=== PATIENT | female | born 1940 | race Caucasian/White ===

== ENCOUNTER → 2019-08-24 | Outpatient (CLI) | payer MEDICARE ==
[~2019-08-24] MED LIST: REGADENOSON 0.4 MG/5 ML DISP.SYRIN. IV ONE
--- NOTE | 2019-08-24 14:05 | RAD ---
MR#: [id number] Date of Study: 08/24/2019 Ordering Physician: KRIS WAY, Referring Physician: ALINE BRADSHAW Tech: NURIS Morocho APPROVED REPORT Test Type: Pharmacological Stress Nurse/Tech: ALISSA Galindo Test Indications: chest pain, family history Cardiac History: See Electronic Medical Record Medications: See Electronic Medical Record Medical History: See Electronic Medical Record Resting ECG: SR Resting Heart Rate: 63 bpm Resting Blood Pressure: 132/55mmHg Nurse/Tech Notes S1S2, lungs CTA, c/o slight chest pain Consent: The procedure was explained to the patient in lay terms. Informed consent was witnessed. Iban eout was entered into [employer]. History and Stress Test performed by RT Gabriela (R) (N) Pharm. Details Pharmacologic stress testing was performed using 0.4mg per 5ml of regadenoson given intravenously ove r 7-10 seconds. Stress Symptoms Pt c/o feeling light-headed and still having slight chest pain, intensity did not increase. POST EXERCISE Reason for Termination: Infusion complete Target HR: No Max HR: 93 bpm Max Blood Pressure: 150/61mmHg Blood Pressure response to exercise: Normal blood pressure response during stress. Heart Rate response to exercise: Normal response to stress Chest Pain: Yes. slight Arrhythmia: No. ST Change: No. INTERPRETATION Stress EKG Conclusion: Baseline EKG showed sinus rhythm. No ischemic changes at peak stress. No arr hythmias. Imaging Protocol IMAGE PROTOCOL: Rest Tc-99m/stress Tc-99m 1 day Rest: Stress: Viability: Radiopharm.Tc99m CyraozdfrTt53m Sestamibi Jhcf54oUp 31mCi Duration 15min. 10min. Img Date 08/24/2019 08/24/2019 Inj-Img Fapd65tzc. 60min. Rest Admin Site:IV - Right AntecubitalAdministrator:ROHIT Dove, ARRT (R)(N) Stress Admin Site: IV - Right AntecubitalAdministrator: RT Gabriela (R)(N) STRESS DATA End Diast. Vol.64.0mlAv. Heart Rate72.0bpm End Syst. Vol.9.0mlCO Index BSA0.0L/min Myocardial Qnpi420.0gEject. Retcukvm43.0% Stress Rates Pk. Fill Rate3.03EDV/secLVtime Pk. Fill 131.97msec Pk. Empty Rate4.02ESV/secLVtime Pk. Yhyvs408.42msec 1/3 Pk. Fill1.93EDV/sec Stress Scores Regional WT0.00Summed WT0.00 Regional WM0.00Summed WM0.00 Study quality was . Left Ventricular size was Normal at Rest and Stress. Lung uptake was . Left Ventricular ejection fraction is 86%. The rest and stress images show normal perfusion, normal contraction and thickening. LV Perf. Quant 17 Seg. SSS1.00 17 Seg. SRS1.00 17 Seg. SDS0.00 Stress Defect Extent (% LAD)0.00Rest Defect Extent (% LAD)0.00Rev. Defect Extent (% LAD)0.00 Stress Defect Extent (% LCX) 5.00Rest Defect Extent (% LCX)2.50Rev. Defect Extent (% LCX)3.80 Stress Defect Extent (% RCA)0.00Rest Defect Extent (% RCA)0.00Rev. Defect Extent (% RCA)0.00 Stress Defect Extent (% JAYLEEN)1.30Rest Defect Extent (% JAYLEEN)0.40Rev. Defect Extent (% JAYLEEN)1.10 Conclusion 1. Regadenoson cardioisotope stress test did not show any evidence of ischemia or infarct. 2. Normal left ventricular systolic function with ejection fraction calculated at 86%. 3. Low risk for cardiac events. Signed by : Kris Way, Electronically Approved : 08/24/2019 14:05:00
--- NOTE | 2019-08-25 09:15 | CARD ---
MR#: [id number] Date of Study: 08/24/2019 Ordering Physician: KRIS RAMIREZ, Referring Physician: Pete BRADSHAW: Ermelinda Richey DU APPROVED REPORT EXAM: Two-dimensional and M-mode echocardiogram with Doppler and color Doppler. Other Information Quality : AverageHR: 63bpm Rhythm : NSR INDICATION Dyspnea 2D DIMENSIONS RVDd3.3 (2.9-3.5cm)Left Atrium(2D)3.7 (1.6-4.0cm) IVSd0.8 (0.7-1.1cm)Aortic Root(2D)1.7 (2.0-3.7cm) LVDd4.9 (3.9-5.9cm)LVOT Diameter1.8 (1.8-2.4cm) PWd0.4 (0.7-1.1cm)LVDs3.1 (2.5-4.0cm) FS (%) 36.6 %SV73.8 ml LVEF(%)66.2 (>50%) Aortic Valve AoV Peak Wilder.151.3cm/sAoV VTI37.5cm AO Peak GR.9.2mmHgLVOT Peak Wilder.95.3cm/s AO Mean GR.5mmHgAVA (VMAX)1.58cm2 MELANIE (VTI)1.60cm2 Mitral Valve MV E Nqxxgieq77.2cm/sMV E Peak Gr.3mmHg MV DECEL LFFB373vyLF A Rotoklee69.5cm/s MV E Mean Gr.1mmHgE/A Ratio1.2 Pulmonary Valve PV Peak Bkdoxrgt40.5cm/s Pulmonary Vein S1 Vqcnojfg62.7cm/sD2 Crxixseg61.4cm/s LEFT VENTRICLE The left ventricle is normal size. There is normal left ventricular wall thickness. The left ventricu lar systolic function is normal. The Ejection Fraction is 65%. There is normal LV segmental wall patrick on. Transmitral Doppler flow pattern is Grade II-pseudonormal filling dynamics. RIGHT VENTRICLE The right ventricle is normal size. There is normal right ventricular wall thickness. The right ventr icular systolic function is normal. ATRIA The left atrium size is normal. The right atrium size is normal. The interatrial septum is intact wit h no evidence for an atrial septal defect or patent foramen ovale as noted on 2-D or Doppler imaging. AORTIC VALVE The aortic valve is normal in structure and function. The aortic valve is trileaflet. Doppler and Col or Flow revealed no significant aortic regurgitation. There is no significant aortic valvular stenosi s. There is no aortic valvular vegetation. MITRAL VALVE The mitral valve is normal in structure and function. There is no evidence of mitral valve prolapse. There is no mitral valve stenosis. Doppler and Color-flow revealed trace mitral regurgitation. TRICUSPID VALVE The tricuspid valve is normal in structure and function. Doppler and Color Flow revealed no tricuspid valve regurgitation noted. There is no tricuspid valve prolapse or vegetation. There is no tricuspid valve stenosis. PULMONIC VALVE The pulmonic valve is not well visualized. GREAT VESSELS The aortic root is normal in size. The ascending aorta is normal in size. The IVC is normal in size a nd collapses >50% with inspiration. PERICARDIAL EFFUSION There is no evidence of significant pericardial effusion. Critical Notification Critical Value: No <Conclusion> The left ventricular systolic function is normal. The Ejection Fraction is 65%. There is normal LV segmental wall motion. Doppler and Color-flow revealed trace mitral regurgitation. There is no evidence of significant pericardial effusion. Signed by : Kris Ramirez, Electronically Approved : 08/25/2019 09:14:35
== END | disposition home or self-care (01) ==
LOC: ECHO 09:19
PROVIDERS: ATTEND Internal Medicine Cardiovascular Disease
DX: R06.09 Other forms of dyspnea (principal); R07.9 Chest pain, unspecified
CPT/HCPCS: 78452; 93017; 93306; A9500; J2785

== ENCOUNTER 2019-09-21 06:57 | Outpatient (CLI) | payer MEDICARE ==
[2019-09-21] VITALS (10 sets, daily range): BP systolic 87–161; BP diastolic 54–89
[~2019-09-21] VITALS: Ht 152.4 cm; Wt 88.5 kg
[2019-09-21] MEDS ORDERED: NAPR220C4 PO (07:28)
[2019-09-21] MEDS ORDERED: ALBU2.5V8 IH (07:28)
[2019-09-21] MEDS ORDERED: ASPI-630 PO (07:28)
[2019-09-21] MEDS ORDERED: METO25TA4 PO (07:28)
[2019-09-21 07:35] LABS: HEMATOCRIT 44.6 % (36.0-47.0); HEMOGLOBIN 14.9 g/dL (12.0-15.5); RED BLOOD COUNT 4.78 x10^6/uL (3.50-5.40); RED CELL DISTRIBUTION WIDTH 13.8 % (11.5-14.5)
[2019-09-21 07:45] LABS: CALCIUM 8.8 mg/dL (8.5-10.1); CREATININE 1.3 mg/dL (0.6-1.0); GFR 39.7; POTASSIUM 4.3 mmol/L (3.5-5.1)
[2019-09-21 07:46] LABS: PROTHROMBIN TIME PATIENT 13.2 SEC (11.7-14.0)
[2019-09-21] MEDS ORDERED: IODIXANOL 320 MG/ML 100 ML VIAL. ONE (07:59)
[2019-09-21] MEDS ORDERED: LIDOCAINE 1% PF 2 ML VIAL. ONE (07:59)
[2019-09-21] MEDS ORDERED: fentaNYL PF VIAL 100 MCG/2 ML VIAL ONE (08:32)
[2019-09-21] MEDS ORDERED: NITROGLYCERIN 200 MCG/2 ML SYRINGE FOR CATH/VASC LAB. ONE (08:32)
[2019-09-21] MEDS ORDERED: MIDAZOLAM HCL/PF 2 MG/2 ML VIAL. ONE (08:32)
[2019-09-21] MEDS ORDERED: VERAPAMIL 5 MG/2 ML VIAL. ONE (08:32)
[2019-09-21] MEDS ORDERED: HEPARIN for IV BOLUS 10,000 UNIT/10 ML VIAL. ONE (08:32)
[2019-09-21] MEDS ORDERED: VERAPAMIL 5 MG/2 ML VIAL. IART ONE (09:15)
[2019-09-21] MEDS ORDERED: NITROGLYCERIN 200 MCG/2 ML SYRINGE FOR CATH/VASC LAB. IART ONE (09:15)
[2019-09-21] MEDS ORDERED: HEPARIN for IV BOLUS 10,000 UNIT/10 ML VIAL. IART ONE (09:15)
[2019-09-21] MEDS ORDERED: LIDOCAINE 1% PF 2 ML VIAL. INJ ONE (09:15)
[2019-09-21] MEDS ORDERED: HEPARIN for IV BOLUS 10,000 UNIT/10 ML VIAL. IV ONE (09:15)
[2019-09-21] MEDS ORDERED: MIDAZOLAM HCL/PF 2 MG/2 ML VIAL. IV ONE (09:15)
[2019-09-21] MEDS ORDERED: IODIXANOL 320 MG/ML 100 ML VIAL. IART ONE (09:15)
[2019-09-21] MEDS ORDERED: fentaNYL PF VIAL 100 MCG/2 ML VIAL IV ONE (09:15)
[2019-09-21] MEDS ORDERED: NITROGLYCERIN SUBLINGUAL 0.4 MG BOTTLE OF 25. SL ONE (09:16)
[2019-09-21] MEDS ORDERED: NITROGLYCERIN SUBLINGUAL 0.4 MG BOTTLE OF 25. SL PRN ×2 (09:30→10:15)
[2019-09-21] MEDS ORDERED: IV 1/2 NORMAL SALINE 1,000 ML IV SCH (10:03)
--- NOTE | 2019-09-21 10:03 | PDOC ---
MODERATE SEDATION ASSESSMENT RISKS/ALTERNATIVES Risks/Alternatives Risks and alternatives of this type of sedation and procedure discussed with: RISK/ALTERNATIVES: Patient H & P ON CHART H & P H & P on chart and reviewed for co-morbid conditions and appropriate labs. H&P ON CHART: Yes STATUS PREG STATUS ASSESSED: N/A MEDS/ALLERGIES REVIEWED Meds/Allergies Reviewed Medications and Allergies including time and route of recently administered narcotics and sedatives. MEDS/ALLERGIES REVIEWED: Yes ASA RATING ASA RATING: II AIRWAY ASSESSMENT Airway Assessment Airway patency, oral function limitations, presence of caps, crowns, dentures, partials, and ability to extend neck assessed. AIRWAY ASSESSMENT: Yes MALLAMPATI SCORE MALLAMPATI SCORE: II PRE-SEDATION ASSESSMENT PRE-SEDATION ASSESSMENT: Yes KRIS WAY MD Sep 21, 2019 10:02
--- NOTE | 2019-09-22 16:32 | CARD ---
MR#: [id number] Date of Study: 09/21/2019 Ordering Physician: KRIS WAY, Referring Physician: KRIS WAY Tech: ARBEN RODRIGUEZ RTR APPROVED REPORT Technologist: ARBEN RODRIGUEZ RTR Nurse: Desirae Del Real R.N. Procedure(s) performed: 1. Left heart catheterization, selective coronary angiography and left ventr iculography via right transradial approach 2. Instant wave free ratio (IFR) measurement to left anterior descending artery stenosis MODERATE SEDATION TIME: 44 MINUTES FLUORO TIME: 8.0 MIN DOSE: 38.6 GYCM2 CONTRAST: 90CC INDICATION The indication(s) include : unstable angina . CS Clinical Frailty Scale [facility] Clinical Frailty Scale: Mildly Frail Heart Failure Heart Failure: No CASE TECHNIQUE During this case, Fluoroscopy and low osmolar contrast were used for imaging. PROCEDURE NARRATIVE After explaining the risks, benefits and alternative options, informed consent was obtained from jaleel ent. Patient was brought to the cardiac Director Design and right wrist was prepped and draped in the usual fashion after confirming a positive modified Kale's test. Arterial access was obtained in the righ t radial artery and a 6 Uzbek sheath was inserted. 6 Uzbek Mitchel and 6 Uzbek JL 3.5 catheters we re used to perform selective angiography of the right and left coronary arteries. 6 Uzbek pigtail ca theter was used to perform left ventriculography. Since patient was found to have angiographically pablo rderline significant stenosis involving the left anterior descending artery, a decision was made to p erform physiologic assessment using Instant wave free ratio measurement (IFR). The left main coronar y artery was engaged with a 6 Uzbek XB 3.5 guide catheter and the stenosis in the proximal segment o f LAD was crossed with a [employer] verrata PressureWire. IFR measurement was made that was not signific ant at 0.93. Hence no interventions were performed. Patient tolerated the procedure well. Hemostasis was achieved using TR band. There were no immediate complications. The following findings were not ed. FINDINGS 1. Hemodynamics: Left ventricular end-diastolic pressure of 28 mmHg. No pullback gradient across th e aortic valve. 2. Left ventriculography: Normal left ventricle systolic function with ejection fraction estimated at 60%. No significant mitral regurgitation seen. 3. Coronary angiography: a. The left main coronary artery arose from the left sinus of Valsalva, gave rise to the left anteri or descending and left circumflex arteries and did not show any significant stenosis. b. The left anterior descending artery showed 50-60% stenosis involving the proximal segment that wa s physiologically insignificant based on IFR measurement of 0.93. c. The left circumflex artery did not show any significant stenosis. d. The right coronary artery was a dominant vessel arising from the right sinus of Valsalva that did not show any significant stenosis. Conclusion 1. 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 Normal left ventricle systolic function with ejection fraction estimated at 60% Recommendations Medical Therapy Signed by : Kris Way, Electronically Approved : 09/21/2019 10:08:17
== END 2019-09-21 11:54 | disposition home or self-care (01) ==
LOC: CCL 06:57
PROVIDERS: ATTEND Internal Medicine Cardiovascular Disease
DX: I25.110 Atherosclerotic heart disease of native coronary artery with unstable angina pectoris (principal); J44.9 Chronic obstructive pulmonary disease, unspecified; N18.2 Chronic kidney disease, stage 2 (mild); Z79.82 Long term (current) use of aspirin; Z79.899 Other long term (current) drug therapy; Z87.891 Personal history of nicotine dependence
CPT/HCPCS: 36415; 80048; 85027; 85610; 93458; 93571; 99152; 99153; C1769; C1887; C1892; J1644; J2250; J3010; J3490; Q9967

== ENCOUNTER → 2020-11-14 | Outpatient (CLI) | payer MEDICARE ==
[2019-09-21 11:15] VITALS: BP 127/62
[~2020-11-14] MED LIST changes: +ALBU2.5V8 IH; +ASPI-630 PO; +METO25TA4 PO; +NAPR220C4 PO; -REGADENOSON 0.4 MG/5 ML DISP.SYRIN. IV ONE
--- NOTE | 2020-11-14 17:19 | CARD ---
MR#: [id number] Date of Study: 11/14/2020 Ordering Physician: KRIS WAY, Referring Physician: KRIS WAY, Tech: Susannah Sinha RDCS APPROVED REPORT EXAM: Two-dimensional and M-mode echocardiogram with Doppler and color Doppler. Other Information Quality : Good INDICATION Hypertension/HCVD 2D DIMENSIONS RVDd2.7 (2.9-3.5cm)Left Atrium(2D)3.3 (1.6-4.0cm) IVSd1.0 (0.7-1.1cm)Aortic Root(2D)2.8 (2.0-3.7cm) LVDd4.4 (3.9-5.9cm)LVOT Diameter1.9 (1.8-2.4cm) PWd0.9 (0.7-1.1cm)LVDs3.3 (2.5-4.0cm) FS (%) 26.4 %SV46.7 ml Aortic Valve AoV Peak Wilder.156.4cm/sAoV VTI33.1cm AO Peak GR.9.8mmHgLVOT Peak Wilder.104.9cm/s AO Mean GR.5mmHgAVA (VMAX)1.85cm2 MELANIE (VTI)2.00cm2 Mitral Valve MV E Ohkfbdij16.0cm/sMV DECEL QHXN990eg MV A Yfbunzjh96.2cm/sE/A Ratio1.1 Pulmonary Vein S1 Yngaymce13.1cm/sD2 Forlmlad62.3cm/s LEFT VENTRICLE The left ventricle is normal size. There is normal left ventricular wall thickness. Left ventricle sy stolic function is normal. The Ejection Fraction is 50-55%. There is normal LV segmental wall motion. Transmitral Doppler flow pattern is Grade I-abnormal relaxation pattern. RIGHT VENTRICLE The right ventricle is normal size. The right ventricular systolic function is normal. ATRIA The left atrium size is normal. The right atrium size is normal. The interatrial septum is intact wit h no evidence for an atrial septal defect or patent foramen ovale as noted on 2-D or Doppler imaging. AORTIC VALVE The aortic valve is calcified but opens well. Doppler and Color Flow revealed trace aortic regurgitat ion. There is no significant aortic valvular stenosis. MITRAL VALVE The mitral valve is calcified but opens well. Mitral annular calcification is mild. There is no evide nce of mitral valve prolapse. There is no mitral valve stenosis. Doppler and Color-flow revealed trac e mitral regurgitation. TRICUSPID VALVE The tricuspid valve is normal in structure and function. Doppler and Color Flow revealed trace tricus pid regurgitation. There is no tricuspid valve stenosis. PULMONIC VALVE The pulmonic valve is not well visualized. Doppler and Color Flow revealed trace pulmonic valvular re gurgitation. There is no pulmonic valvular stenosis. GREAT VESSELS The aortic root is normal in size. The ascending aorta is mildly dilated at 3.5 cm. The IVC is normal in size and collapses >50% with inspiration. PERICARDIAL EFFUSION There is no evidence of significant pericardial effusion. Critical Notification Critical Value: No <Conclusion> The left ventricle is normal size. Left ventricle systolic function is normal. The Ejection Fraction is 50-55%. There is normal left ventricular wall thickness. Doppler and Color Flow revealed trace aortic regurgitation. There is no significant aortic valvular stenosis. Doppler and Color-flow revealed trace mitral regurgitation. Doppler and Color Flow revealed trace tricuspid regurgitation. The ascending aorta is mildly dilated at 3.5 cm. Signed by : Darvin Phelan MD Electronically Approved : 11/14/2020 17:18:36
== END ==
LOC: ECHO 11:06
PROVIDERS: ATTEND Internal Medicine Cardiovascular Disease
DX: I08.2 Rheumatic disorders of both aortic and tricuspid valves (principal)
CPT/HCPCS: 93306

== ENCOUNTER → 2021-11-12 | Outpatient (CLI) | payer MEDICARE ==
[2019-09-21 11:15] VITALS: BP 127/62
[~2021-11-12] MED LIST changes: +REGADENOSON 0.4 MG/5 ML DISP.SYRIN. IV ONE
--- NOTE | 2021-11-12 13:10 | RAD ---
MR#: [id number] Date of Study: 11/12/2021 Ordering Physician: KRIS WAY, Referring Physician: ALINE BRADSHAW Tech: ROHIT Dove, ARRT (R) (N) APPROVED REPORT Test Type: Pharmacological Stress Nurse/Tech: Cliff Azul RN Test Indications: CAD Cardiac History: See EMR. Medications: See EMR. Medical History: COPD, Smoker, See EMR. Resting ECG: SR Resting Heart Rate: 73 bpm Resting Blood Pressure: 143/61mmHg Pretest Chest Pain: No chest pain Nurse/Tech Notes Lungs CTA, Heart tones regular. Consent: The procedure was explained to the patient in lay terms. Informed consent was witnessed. Iban eout was entered into [employer]. History and Stress Test performed by RT Gabriela (R) (N) Pharm. Details Pharmacologic stress testing was performed using 0.4mg per 5ml of regadenoson given intravenously ove r 7-10 seconds. Stress Symptoms No chest pain or symptoms. POST EXERCISE Reason for Termination: Infusion complete Max HR: 94 bpm Max Blood Pressure: 140/63mmHg Blood Pressure response to exercise: Normal blood pressure response during stress. Heart Rate response to exercise: WNL Chest Pain: No. Arrhythmia: No. ST Change: No. INTERPRETATION Stress EKG Conclusion: Baseline EKG showed sinus rhythm. No ischemic changes at peak stress. No arr hythmias. Imaging Protocol IMAGE PROTOCOL: Rest Tc-99m/stress Tc-99m 1 day Rest: Stress: Viability: Radiopharm.Tc99m VrxtoqdjvEp03r Sestamibi Xvll37lYu 31mCi Img Date 11/12/2021 11/12/2021 Inj-Img Dbzd59vij. 60min. Rest Admin Site:IV - Right AntecubitalAdministrator:ROHIT Dove, ARRJama (R)(N) Stress Admin Site: IV - Right AntecubitalAdministrator: RT Rip Ochoa)(N) STRESS DATA End Diast. Vol.62.0mlAv. Heart Rate80.0bpm End Syst. Vol.20.0mlCO Index BSA0.0L/min Myocardial Huui848.0gEject. Pzjoeqbo04.0% Stress Rates Pk. Fill Rate3.74EDV/secLVtime Pk. Fill 210.11msec Pk. Empty Rate4.07ESV/secLVtime Pk. Ttemb641.37msec 1/3 Pk. Fill1.28EDV/sec Stress Scores Regional WT0.00Summed WT2.00 Regional WM0.00Summed WM6.00 Study quality was good. Left Ventricular size was Normal at Rest and Stress. Lung uptake was . Left Ventricular ejection fraction is 73%. The rest and stress images show normal perfusion, normal contraction and thickening. LV Perf. Quant 17 Seg. SSS0.00 17 Seg. SRS2.00 17 Seg. SDS0.00 Stress Defect Extent (% LAD)0.00Rest Defect Extent (% LAD)4.40Rev. Defect Extent (% LAD)0.00 Stress Defect Extent (% LCX) 0.00Rest Defect Extent (% LCX)10.00Rev. Defect Extent (% LCX)0.00 Stress Defect Extent (% RCA)0.00Rest Defect Extent (% RCA)0.00Rev. Defect Extent (% RCA)0.00 Stress Defect Extent (% JAYLEEN)0.00Rest Defect Extent (% JAYLEEN)5.70Rev. Defect Extent (% JAYLEEN)0.00 Conclusion 1. Regadenoson cardioisotope stress test did not show any evidence of ischemia or infarct. 2. Normal left ventricular systolic function with ejection fraction calculated at 73%. 3. Low risk for cardiac events. Signed by : Kris Way, Electronically Approved : 11/12/2021 13:10:26
--- NOTE | 2021-11-12 13:47 | RAD ---
MR#: [id number] Date of Study: 11/12/2021 Ordering Physician: KRIS RAMIREZ, Referring Physician: KRIS RAMIREZ, Tech: Sujey Woods RDMS, RVT, RTR APPROVED REPORT Patient Location : OUT-PATIENT Indications VENOUS INSUFFICIENCY Greater Saphenous Veins (GSV) Significant venous relux noted in the RIGHT GSV at the following levels : Superficial Femoral Junctio n, Proximal Thigh, Mid Thigh, Distal Thigh, Proximal Calf, Mid Calf, Distal Calf Significant venous relux noted in the LEFT GSV at the following levels : Superficial Femoral Junction , Proximal Thigh, Mid Thigh, Distal Thigh, Proximal Calf Findings Grayscale images of bilateral saphenofemoral junctions and superficial veins in lower extremities are grossly unremarkable without any evidence of thrombus. Spectral waveform and color duplex analysis showed significant venous reflux involving bilateral greater saphenous veins. The right greater saph enous vein measured 7.7 mm at the saphenofemoral junction and showed reflux of 1.1 seconds. This vei n showed significant reflux of greater than [address] from the groin to ankle. The left g reater saphenous vein measured 10.6 mm at the saphenofemoral junction and showed significant reflux o f 1.1 seconds. This vein showed significant reflux of greater than 1 second from groin to proximal c assisted level beyond which it becomes tortuous. The lesser saphenous veins bilaterally did not show any significant reflux. Critical Notification Critical Value: No <Conclusion> Bilateral lower extremity venous reflux study showed significant venous insufficiency involving bilat eral greater saphenous veins. Signed by : Kris Ramirez, Electronically Approved : 11/12/2021 13:47:05
== END ==
LOC: NM 09:05
PROVIDERS: ATTEND Internal Medicine Cardiovascular Disease
DX: I87.2 Venous insufficiency (chronic) (peripheral) (principal); I25.10 Atherosclerotic heart disease of native coronary artery without angina pectoris
CPT/HCPCS: 78452; 93017; 93970; A9500; J2785